=== PATIENT | female | born 1960 | race Caucasian/White ===

== ENCOUNTER 2023-10-03 17:27 | Emergency (ER) | payer BC ==
[~2023-10-03] VITALS: Ht 167.6 cm; Wt 136.4 kg
[2023-10-03 17:37] VITALS: TEMP 98
[2023-10-03] MEDS ORDERED: Oxymetazoline 0.05% Nasal Spray 30 ML BOTTLE NS ONE (18:00)
[2023-10-03 18:07] LABS: BASO # 0.1 K/mm3 (0.0-0.2); BASO % 0.6 % (0.0-2.0); EOS # 0.2 K/mm3 (0.0-0.7); EOS % 2.7 % (0.0-4.0); GRAN # 3.9 K/mm3 (1.4-6.5); GRAN % 49.1 % (42.2-75.2); HEMOGLOBIN 12.4 g/dl (12.5-16.0); LYMPH % 37.6 % (20.0-51.0); MEAN CELL VOLUME 87 fl (80.0-100.0); MEAN CORPUSCULAR HEMOGLOBIN 30 pg (27-31); MEAN CORPUSCULAR HGB CONC 34 g/dl (33.0-37.0); MEAN PLATELET VOLUME 10.1 fl (7.4-10.4); MONO # 0.7 K/mm3 (0.1-0.6); MONO % 9.4 % (1.7-9.3); PLATELET COUNT 216 K/mm3 (130-400); RED BLOOD COUNT 4.15 M/mm3 (4.10-5.30); REDCELL DISTRIBUTION WIDTH-CV 13.8 % (11.5-14.5)
[2023-10-03 18:08] LABS: HEMATOCRIT 36.2 % (37.0-47.0)
[2023-10-03 18:23] LABS: INR 1.1 (0.8-3.0); PROTHROMBIN TIME 12.5 SECONDS (9.7-12.8)
[2023-10-03 18:25] LABS: ALBUMIN 3.4 gm/dL (3.4-4.8); BILIRUBIN,TOTAL 0.2 mg/dL (0.2-1.2); CALCIUM 9.1 mg/dL (8.4-10.2); CREATININE, serum 0.79 mg/dL (0.57-1.11); TOTAL PROTEIN 6.8 gm/dL (6.2-8.1)
[2023-10-03] MEDS ORDERED: Tranexamic Acid 1,000 MG/10 ML VIAL NS ONE ×2 (18:30→18:45)
[2023-10-03] MEDS ORDERED: Tranexamic Acid 1,000 MG/10 ML VIAL IH ONE (20:45)
[2023-10-03 22:14] VITALS: BP 135/62; PULSE 88
== END 2023-10-03 22:14 | disposition home or self-care (01) ==
LOC: COL.ER 17:27
PROVIDERS: Nurse Practitioner
DX: R04.0 Epistaxis (principal); Z79.02 Long term (current) use of antithrombotics/antiplatelets